=== PATIENT | female | born 1950 | race Caucasian/White ===

== ENCOUNTER 2016-10-01 11:49 | Emergency (ER) | payer MEDICARE ==
--- NOTE | 2016-10-01 12:05 | ER Document Report ---
ED Medical Screen (RME) - General Stated Complaint: ARM PAIN Mode of Arrival: Ambulatory Information source: Patient TRAVEL OUTSIDE OF THE [place] IN LAST 30 DAYS: No - HPI Patient complains to provider of: right upper arm pain and bruising her days. Onset: Just prior to arrival - Similar episode on September 10 in [place] Physical Exam - Vital signs Vitals: Temp Pulse Resp BP Pulse Ox 98.5 F 106 H 16 138/80 H 96 10/01/16 11:57 10/01/16 11:57 10/01/16 11:57 10/01/16 11:57 10/01/16 11:57 Course - Vital Signs Vital signs: Temp Pulse Resp BP Pulse Ox 98.5 F 106 H 16 138/80 H 96 10/01/16 11:57 10/01/16 11:57 10/01/16 11:57 10/01/16 11:57 10/01/16 11:57
[2016-10-01 12:55] LABS: PROTHROMBIN TIME 13.2 SEC (11.4-15.4)
[2016-10-01 13:01] LABS: ALANINE AMINOTRANSFERASE 92 U/L (9-52); ALBUMIN 3.8 g/dL (3.5-5.0); ALKALINE PHOSPHATASE 170 U/L (38-126); ANION GAP 10 (5-19); ASPARTATE AMINO TRANSFERASE 46 U/L (14-36); BILIRUBIN,TOTAL 0.4 mg/dL (0.2-1.3); BLOOD UREA NITROGEN 17 mg/dL (7-20); CALCIUM 9.3 mg/dL (8.4-10.2); CARBON DIOXIDE 28 mmol/L (22-30); CHLORIDE 103 mmol/L (98-107); CREATININE RESULT 0.76 mg/dL (0.52-1.25); GLUCOSE 79 mg/dL (75-110); POTASSIUM 4.1 mmol/L (3.6-5.0); SODIUM 141.3 mmol/L (137-145); TOTAL PROTEIN 6.5 g/dL (6.3-8.2)
--- NOTE | 2016-10-01 14:23 | ER Document Report ---
ED Extremity Problem, Upper - General Mode of Arrival: Ambulatory TRAVEL OUTSIDE OF THE [place] IN LAST 30 DAYS: No - HPI Patient complains to provider of: Arm - bruising <DIANELYS PERKINS - Last Filed: 10/01/16 14:14> <MAKENZIE HANEY - Last Filed: 10/01/16 16:05> - General Chief Complaint: Arm Problem Stated Complaint: arm bruising Notes: Patient is a 66 year old female, with a past medical history of HTN, who presents to the emergency department complaining of right upper arm bruising. Patient states that she was in [place] and went to the doctor on 09/03 had her blood pressure taken with a manual cuff, 3 days later patient experienced extreme bruising around the band site (patient has cell phone picture documenting bruise ). Patient was admitted in [place] and was told by a cardiovascular surgeon that it was a pseudoaneurysm and was non-emergent but she should follow up with a vascular surgeon when she is back in [place]. This morning patient states that she noticed bruising developed around both of her upper arms near her armpits and reports no different activity or use of a bloop pressure cuff. (DIANELYS PERKINS) - Related Data Allergies/Adverse Reactions: latex Allergy (Verified 10/01/16 12:05) Past Medical History - General Information source: Patient - Social History Smoking Status: Never Smoker Chew tobacco use (# tins/day): No Frequency of alcohol use: None Drug Abuse: None Family History: Reviewed & Not Pertinent Patient has suicidal ideation: No Patient has homicidal ideation: No - Past Medical History Cardiac Medical History: Reports: Hx Hypertension Musculoskeltal Medical History: Reports Hx Arthritis Past Surgical History: Reports: Hx Cholecystectomy, Hx Orthopedic Surgery <DIANELYS PERKINS - Last Filed: 10/01/16 14:14> Review of Systems - Review of Systems Constitutional: No symptoms reported EENT: No symptoms reported Cardiovascular: No symptoms reported Respiratory: No symptoms reported Gastrointestinal: No symptoms reported Genitourinary: No symptoms reported Female Genitourinary: No symptoms reported Musculoskeletal: No symptoms reported Skin: See HPI, Other - upper arm bruising Hematologic/Lymphatic: No symptoms reported Neurological/Psychological: No symptoms reported -: Yes All other systems reviewed and negative <DIANELYS PERKINS - Last Filed: 10/01/16 14:14> Physical Exam - Vital signs Interpretation: Normal - General General appearance: Appears well, Alert - HEENT Head: Normocephalic, Atraumatic - Respiratory Respiratory status: No respiratory distress Chest status: Nontender Breath sounds: Normal Chest palpation: Normal - Cardiovascular Rhythm: Regular Heart sounds: Normal auscultation Murmur: No - Back Back: Normal, Nontender - Extremities General upper extremity: Other - Bilateral bruising around axillas with left unimpressive compared to right General lower extremity: Normal inspection - Neurological Neuro grossly intact: Yes Cognition: Normal Orientation: AAOx4 Jim Coma Scale Eye Opening: Spontaneous Jim Coma Scale Verbal: Oriented Jim Coma Scale Motor: Obeys Commands Jim Coma Scale Total: 15 Speech: Normal - Psychological Associated symptoms: Normal affect, Normal mood - Skin Skin Temperature: Warm Skin Moisture: Dry Skin Color: Normal <DIANELYS PERKINS - Last Filed: 10/01/16 14:14> Course - Laboratory Result Diagrams: 10/01/16 12:15 <DIANELYS PERKINS - Last Filed: 10/01/16 14:14> - Laboratory Result Diagrams: 10/01/16 12:15 10/01/16 12:15 - Diagnostic Test Radiology reviewed: Reports reviewed - Consults Dr. Zaida Roy Consulted provider: follow-up in office - Will see Wed or Thurs in the office. <MAKENZIE HANEY - Last Filed: 10/01/16 16:05> - Re-evaluation Re-evalutation: 10/01/16 15:19 The patient arterial Doppler was discussed with Dr. Zaida Roy. He feels this is a vascularized hematoma and is not certain that it is a pseudoaneurysm. He would like to see her in the office this coming week for further evaluation. (MAKENZIE HANEY) - Vital Signs Vital signs: Temp Pulse Resp BP Pulse Ox 98.5 F 106 H 16 138/80 H 96 10/01/16 11:57 10/01/16 11:57 10/01/16 11:57 10/01/16 11:57 10/01/16 11:57 (DIANELYS PERKISN) (MAKENZIE HANEY) - Laboratory Laboratory results interpreted by wy: 10/01/16 10/01/16 12:15 12:15 MCV 101 H MCH 33.8 H AST 46 H ALT 92 H Alkaline Phosphatase 170 H (DIANELYS PERKINS) (MAKENZIE HANEY) Discharge <DIANELYS PERKINS - Last Filed: 10/01/16 14:14> <MAKENZIE HANEY - Last Filed: 10/01/16 16:05> - Discharge Clinical Impression: Vascularized hematoma right upper arm Condition: Stable Disposition: HOME, SELF-CARE Additional Instructions: CALL [facility] TUESDAY MORNING FOR AN APPOINTMENT WITH DR. ZAIDA ROY ON TUE OR . Referrals: [facility] [Provider Group] - 10/04/16 (Call Tuesday for a Tue or appointment with Dr. Roy.) Scribe Attestation: 10/01/16 16:05 I personally performed the services described in the documentation, reviewed and edited the documentation which was dictated to the scribe in my presence, and it accurately records my words and actions. (MAKENZIE HANEY) Scribe Documentation <DIANELYS PERKINS - Last Filed: 10/01/16 14:14> <MAKENZIE HANEY - Last Filed: 10/01/16 16:05> - Scribe Written by Scribe:: MAKENZIE HANEY MD, SCRIBE 10/01/16 [id number] Acting as scribe for: Dr. Haney (DIANELYS PERKINS) (MAKENZIE HANEY)
[2016-10-01 15:55] LABS: ABSOLUTE BASOPHILS # (AUTO) 0.1 10^3/uL (0.0-0.2); ABSOLUTE EOSINOPHILS # (AUTO) 0.1 10^3/uL (0.0-0.6); ABSOLUTE LYMPHOCYTES (AUTO) 2.1 10^3/uL (0.5-4.7); ABSOLUTE MONOCYTES (AUTO) 0.8 10^3/uL (0.1-1.4); ABSOLUTE NEUT (AUTO) 4.3 10^3/uL (1.7-8.2); EOSINOPHILS % (AUTO) 1.7 % (0-6); HEMATOCRIT 37.7 % (36.0-47.0); HEMOGLOBIN 12.6 g/dL (12.0-15.5); HGB HCT DIFFERENCE 0.1; LYMPHOCYTES % (AUTO) 28.5 % (13-45); MEAN CORPUSCULAR HEMOGLOBIN 33.8 pg (27.0-33.4); MEAN CORPUSCULAR HGB CONC 33.4 g/dL (32.0-36.0); MEAN CORPUSCULAR VOLUME 101 fl (80-97); MONOCYTES % (AUTO) 10.9 % (3-13); RED BLOOD COUNT 3.73 10^6/uL (3.72-5.28); RED CELL DISTRIBUTION WIDTH 13.5 % (11.5-14.0); SEGMENTED NEUTROPHILS % (AUTO) 57.9 % (42-78); WHITE BLOOD COUNT 7.4 10^3/uL (4.0-10.5)
[2016-10-01 16:24] VITALS: BP 146/84
--- NOTE | 2016-10-02 17:06 | XCELERA REPORT ---
[address] [id number] Upper Extremity Venous Evaluation Name: NICKO BOUCHER Age: 66 yrs Gender: Female : 1950 Patient Status: Emergency Patient Location: ER Study Date: 10/01/2016 01:17 PM Procedure: Unilateral duplex scan of the right upper extremity veins was performed, including responses to compression and other maneuvers. Reason For Study: rue swelling bruising Ordering Physician: RENATA SAUCEDA Performed By: Gerald Rico Right Side Venous Evaluation A vascularized hematoma, 5 cms X 1 cm noted in the upper arm. Seems to be connected to the Brachial artery by a branch. Normal vein vessel filling wall to wall, compression and augmentation as well as Colour flow down to the infrageniculate veins. Spot check of arterial flow entirely normal to the Radial and Ulnar arteries. Critical Findings Discussed with Dr Jimenez and recommendation for vascular follow up. Interpretation Summary No duplex evidence of DVT or obstruction in the right upper extremity. Unusual findings as noted. : RENATA SAUCEDA > Timothy Kim
== END 2016-10-01 16:37 | disposition home or self-care (01) ==
LOC: ER 11:49
DX: S40.021A Contusion of right upper arm, initial encounter (principal); X58.XXXA Exposure to other specified factors, initial encounter; I10 Essential (primary) hypertension
CPT/HCPCS: 36415; 80053; 85025; 85610; 93971; 99283

== ENCOUNTER → 2016-10-25 | Outpatient (CLI) | payer MEDICARE | LOC: RAD 07:05 | PROVIDERS: ATTEND Internal Medicine | DX: J98.2 Interstitial emphysema (principal) | CPT/HCPCS: 71250 ==

== ENCOUNTER → 2017-02-04 | Outpatient (CLI) | payer MEDICARE | LOC: RAD 14:50 | PROVIDERS: ATTEND Surgery | DX: M79.601 Pain in right arm (principal); I72.1 Aneurysm of artery of upper extremity | CPT/HCPCS: 82565; 73220; A9576 ==